=== PATIENT | male | born 2000 | race Caucasian/White ===

== ENCOUNTER 2023-07-23 15:13 | Inpatient (IN) | payer OTHER ==
[~2023-07-23] VITALS: Ht 167.6 cm; Wt 72.7 kg
[~2023-07-23 15:13] MED LIST: FLUO20CA22 PO; NYST10OI TOP
[2023-07-23 16:37] LABS: HEMATOCRIT 45.7 % (42.0-52.0); HEMOGLOBIN 16.1 g/dl (13.5-17.5); MEAN CORPUSCULAR HEMOGLOBIN 30.3 pg (27.0-33.0); MEAN CORPUSCULAR HGB CONC 35.2 g/dl (32.0-36.5); MEAN CORPUSCULAR VOLUME 85.9 fl (80.0-96.0); PLATELET COUNT, AUTOMATED 308 10^3/uL (150-450); RED BLOOD COUNT 5.32 10^6/uL (4.30-6.10); WHITE BLOOD COUNT 8.8 10^3/uL (4.0-10.0)
[2023-07-23 16:54] LABS: ETHYL ALCOHOL (ETHANOL) 0.011 % (0.000-0.010)
[2023-07-23 16:56] LABS: ALBUMIN 4.2 G/DL (3.2-5.2); ALKALINE PHOSPHATASE 106 U/L (46-116); ALT/SGPT 32 U/L (7.0-40); AST/SGOT 29 U/L (<34); BILIRUBIN,DIRECT 0.2 MG/DL (<0.4); BILIRUBIN,TOTAL 0.8 MG/DL (0.3-1.2); BLOOD UREA NITROGEN 14 MG/DL (9-23); CALCIUM LEVEL 9.6 MG/DL (8.5-10.1); CARBON DIOXIDE LEVEL 26 MMOL/L (20-31); CHLORIDE LEVEL 104 MMOL/L (98-107); CREATININE FOR GFR 0.84 MG/DL (0.70-1.30); GLOMERULAR FILTRATION RATE > 60.0 (>60); GLUCOSE, FASTING 88 MG/DL (60-100); POTASSIUM SERUM 4.2 MMOL/L (3.5-5.1); SALICYLATE LEVEL < 3.0 MG/DL (<30); SODIUM LEVEL 141 MMOL/L (136-145)
[2023-07-23 17:01] LABS: AMPHETAMINES LEVEL URINE NEGATIVE (NEGATIVE); BARBITURATES URINE NEGATIVE (NEGATIVE); CANNABINOIDS URINE NEGATIVE (NEGATIVE); COCAINE METABOLITE URINE NEGATIVE (NEGATIVE); PHENCYCLIDINE URINE NEGATIVE (NEGATIVE)
[2023-07-23 17:02] LABS: BENZODIAZEPINES URINE NEGATIVE (NEGATIVE); METHADONE URINE NEGATIVE (NEGATIVE); OPIATES URINE NEGATIVE (NEGATIVE)
[2023-07-23] MEDS ORDERED: MED REC IN PROGRESS XX SCH (17:35)
[2023-07-23] MEDS ORDERED: FLUO20CA22 PO (17:44)
[2023-07-23] MEDS ORDERED: NYST100085 TOP (17:45)
[2023-07-23] MEDS ORDERED: HOME MED LIST COMPLETE! XX SCH (17:50)
[2023-07-23] MEDS ORDERED: IBUPROFEN 400MG TAB PO PRN (18:25)
[2023-07-23] MEDS ORDERED: MAALOX 30 ML SUSP *UDC PO PRN (18:25)
[2023-07-23] MEDS ORDERED: ACETAMINOPHEN TAB 650MG DOSE (2X325MG) PO PRN (18:25)
[2023-07-23] MEDS ORDERED: diphenhydrAMINE 25MG CAP PO PRN (18:25)
[2023-07-23] MEDS ORDERED: MOM 30ML SUSPENSION UDC PO PRN (18:25)
[2023-07-23] MEDS ORDERED: LORazepam 2 MG TAB PO PRN (21:05)
[2023-07-23] MEDS: THIAMINE 100 MG TAB PO SCH (21:25)
[2023-07-23] MEDS: FLUoxetine 20MG CAP PO SCH (21:25)
[2023-07-23 21:32] VITALS: BP 135/88; TEMP 97.9; O2SAT 99
[2023-07-23 21:43] VITALS: BP 135/88
[2023-07-24 06:24] VITALS: BP 144/75; TEMP 97.6; O2SAT 100
[2023-07-24] MEDS: THIAMINE 100 MG TAB PO SCH ×2 (09:53→21:04)
[2023-07-24] MEDS: MULTIVITAMINS/MINERALS THERAP 1 TAB PO SCH (09:53)
[2023-07-24] MEDS: FOLIC ACID 1MG TAB PO SCH (09:53)
[2023-07-24 10:11] VITALS: BP 144/75; TEMP 97.6; O2SAT 100
[2023-07-24 12:41] VITALS: BP 142/87; TEMP 98.7; O2SAT 99
[2023-07-24 12:46] VITALS: BP 142/87
[2023-07-24 17:13] VITALS: BP 129/58; TEMP 97.6; O2SAT 97
[2023-07-24] MEDS: FLUoxetine 20MG CAP PO SCH (21:04)
[2023-07-24 21:30] VITALS: BP 129/58
[2023-07-25 06:01] VITALS: BP 139/81; TEMP 97.1; O2SAT 98
[2023-07-25 06:22] VITALS: BP 139/81
[2023-07-25] MEDS: FOLIC ACID 1MG TAB PO SCH (09:14)
[2023-07-25] MEDS: THIAMINE 100 MG TAB PO SCH ×2 (09:14→21:02)
[2023-07-25] MEDS: MULTIVITAMINS/MINERALS THERAP 1 TAB PO SCH (09:14)
[2023-07-25 14:03] VITALS: BP 143/83
[2023-07-25 18:22] VITALS: BP 121/77; TEMP 97.4; O2SAT 99
[2023-07-25] MEDS: FLUoxetine 20MG CAP PO SCH (21:02)
[2023-07-25 23:00] VITALS: BP 121/77
[2023-07-26 05:51] VITALS: BP 137/70; TEMP 97.5; O2SAT 97
[2023-07-26 07:00] VITALS: BP 134/97
[2023-07-26] MEDS: THIAMINE 100 MG TAB PO SCH (09:21)
[2023-07-26] MEDS: MULTIVITAMINS/MINERALS THERAP 1 TAB PO SCH (09:21)
[2023-07-26] MEDS: FOLIC ACID 1MG TAB PO SCH (09:21)
[2023-07-26 16:00] VITALS: BP 140/69
[2023-07-26 17:30] VITALS: BP 141/64; TEMP 97.9; O2SAT 96
[2023-07-26] MEDS: FLUoxetine 20MG CAP PO SCH (20:42)
[2023-07-27] MEDS: traZODone 50 MG TAB PO PRN ×2 (00:21→21:41)
[2023-07-27 06:41] VITALS: BP 108/59; TEMP 97.1; O2SAT 98
[2023-07-27 09:42] VITALS: BP 108/59; TEMP 97.1; O2SAT 98
[2023-07-27] MEDS: MULTIVITAMINS/MINERALS THERAP 1 TAB PO SCH (10:34)
[2023-07-27] MEDS: FOLIC ACID 1MG TAB PO SCH (10:34)
[2023-07-27 18:00] VITALS: BP 123/60; TEMP 97.6; O2SAT 97
[2023-07-27] MEDS: FLUoxetine 20MG CAP PO SCH (20:08)
[2023-07-28 06:39] VITALS: BP 131/65; TEMP 97.7; O2SAT 98
[2023-07-28 06:40] VITALS: BP 131/65
[2023-07-28] MEDS: MULTIVITAMINS/MINERALS THERAP 1 TAB PO SCH (10:02)
[2023-07-28] MEDS: FOLIC ACID 1MG TAB PO SCH (10:02)
[2023-07-28 11:11] VITALS: BP 131/65; TEMP 97.7; O2SAT 98
[2023-07-28 18:00] VITALS: BP 142/86; TEMP 98.2; O2SAT 97
[2023-07-28 19:09] VITALS: BP 145/80
[2023-07-28] MEDS: traZODone 50 MG TAB PO PRN (21:43)
[2023-07-28] MEDS: FLUoxetine 20MG CAP PO SCH (21:43)
[2023-07-29 06:25] VITALS: BP 119/58; TEMP 97.1; O2SAT 98
[2023-07-29] MEDS ORDERED: VITMTA PO (08:38)
[2023-07-29] MEDS ORDERED: FOLI1TAB11 PO (08:38)
[2023-07-29] MEDS ORDERED: TRAZ-252 PO (08:38)
[2023-07-29] MEDS ORDERED: FLUO20CA22 PO (08:38)
[2023-07-29] MEDS: MULTIVITAMINS/MINERALS THERAP 1 TAB PO SCH (09:09)
[2023-07-29] MEDS: FOLIC ACID 1MG TAB PO SCH (09:09)
== END 2023-07-29 10:17 | disposition home or self-care (01) | DRG 881 ==
LOC: M ED 15:13 → M ED INP 18:25 → M PSY 20:43
PROVIDERS: ADMIT Student in an Organized Health Care Education/Training Program; ATTEND Student in an Organized Health Care Education/Training Program
DX: F32.A Depression, unspecified (principal); F10.10 Alcohol abuse, uncomplicated; F12.10 Cannabis abuse, uncomplicated; F43.21 Adjustment disorder with depressed mood; Z91.51 Personal history of suicidal behavior; Z62.811 Personal history of psychological abuse in childhood; Z79.899 Other long term (current) drug therapy

== ENCOUNTER 2023-08-08 01:44 | Inpatient (IN) | payer OTHER ==
[~2023-08-08] VITALS: Ht 167.6 cm; Wt 72.7 kg
[~2023-08-08 01:44] MED LIST changes: +FOLI1TAB11 PO; +NYST100085 TOP; +TRAZ-252 PO; +VITMTA PO
[2023-08-08 02:16] LABS: BASO % 0.4 % (0.0-1.0); EOS # 0.1 10^3/uL (0.0-0.5); EOS % 1.9 % (0.0-3.0); HEMOGLOBIN 15.7 g/dl (13.5-17.5); LYMPH # 2.6 10^3/uL (1.5-5.0); LYMPH % 38.4 % (24.0-44.0); MEAN CORPUSCULAR HEMOGLOBIN 30.4 pg (27.0-33.0); MEAN CORPUSCULAR HGB CONC 34.9 g/dl (32.0-36.5); MEAN CORPUSCULAR VOLUME 87.2 fl (80.0-96.0); MONO # 0.5 10^3/uL (0.0-0.8); MONO % 7.1 % (2.0-8.0); NEUTROPHILS # 3.5 10^3/uL (1.5-8.5); NEUTROPHILS % 51.6 % (36.0-66.0); PLATELET COUNT, AUTOMATED 333 10^3/uL (150-450); RED BLOOD COUNT 5.16 10^6/uL (4.30-6.10); WHITE BLOOD COUNT 6.8 10^3/uL (4.0-10.0)
[2023-08-08 02:39] LABS: AMPHETAMINES LEVEL URINE NEGATIVE (NEGATIVE); BARBITURATES URINE NEGATIVE (NEGATIVE); BENZODIAZEPINES URINE NEGATIVE (NEGATIVE); CANNABINOIDS URINE NEGATIVE (NEGATIVE); COCAINE METABOLITE URINE NEGATIVE (NEGATIVE); METHADONE URINE NEGATIVE (NEGATIVE); OPIATES URINE NEGATIVE (NEGATIVE); PHENCYCLIDINE URINE NEGATIVE (NEGATIVE)
[2023-08-08 02:41] LABS: ETHYL ALCOHOL (ETHANOL) 0.243 % (0.000-0.010)
[2023-08-08 02:42] LABS: SALICYLATE LEVEL < 3.0 MG/DL (<30)
[2023-08-08 02:43] LABS: ALBUMIN 4.1 G/DL (3.2-5.2); ALKALINE PHOSPHATASE 102 U/L (46-116); ALT/SGPT 33 U/L (7.0-40); AST/SGOT 27 U/L (<34); BILIRUBIN,DIRECT < 0.1 MG/DL (<0.4); BILIRUBIN,TOTAL 0.3 MG/DL (0.3-1.2); BLOOD UREA NITROGEN 10 MG/DL (9-23); CALCIUM LEVEL 9.2 MG/DL (8.5-10.1); CARBON DIOXIDE LEVEL 26 MMOL/L (20-31); CHLORIDE LEVEL 106 MMOL/L (98-107); CREATININE FOR GFR 0.87 MG/DL (0.70-1.30); GLOMERULAR FILTRATION RATE > 60.0 (>60); GLUCOSE, FASTING 108 MG/DL (60-100); SODIUM LEVEL 145 MMOL/L (136-145); TOTAL PROTEIN 7.6 G/DL (5.7-8.2)
[2023-08-08 02:45] LABS: THYROID STIMULATING HORMONE 0.935 uIU/ML (0.55-4.78)
[2023-08-08] MEDS ORDERED: LORazepam 2 MG TAB PO PRN (09:30)
[2023-08-08] MEDS ORDERED: LORazepam 1 MG TAB PO PRN ×2 (09:33→12:25)
[2023-08-08] MEDS ORDERED: MED REC IN PROGRESS XX SCH (09:55)
[2023-08-08] MEDS ORDERED: HOME MED LIST COMPLETE! XX SCH (11:30)
[2023-08-08] MEDS ORDERED: MAALOX 30 ML SUSP *UDC PO PRN (12:25)
[2023-08-08] MEDS ORDERED: MOM 30ML SUSPENSION UDC PO PRN (12:25)
[2023-08-08] MEDS ORDERED: ACETAMINOPHEN TAB 650MG DOSE (2X325MG) PO PRN (12:25)
[2023-08-08] MEDS ORDERED: IBUPROFEN 400MG TAB PO PRN (12:25)
[2023-08-08 13:06] VITALS: BP 148/88; TEMP 98.2; O2SAT 98
[2023-08-08 18:00] VITALS: BP 178/90; TEMP 98.5; O2SAT 98
[2023-08-08] MEDS ORDERED: THIAMINE 100 MG TAB PO SCH (21:00)
[2023-08-08] MEDS: traZODone 50 MG TAB PO PRN (21:03)
[2023-08-08] MEDS: THIAMINE 100 MG TAB PO SCH (21:03)
[2023-08-08] MEDS: FLUoxetine 20MG CAP PO SCH (21:03)
[2023-08-08 22:01] VITALS: BP 143/81
[2023-08-09 06:00] VITALS: BP 111/64
[2023-08-09 06:20] VITALS: BP 111/64; TEMP 98.3; O2SAT 96
[2023-08-09] MEDS: THIAMINE 100 MG TAB PO SCH ×2 (08:57→21:08)
[2023-08-09] MEDS: NALTREXONE 50 MG TAB PO SCH (08:57)
[2023-08-09] MEDS ORDERED: FOLIC ACID 1MG TAB PO SCH ×2 (09:00)
[2023-08-09] MEDS ORDERED: MULTIVITAMINS/MINERALS THERAP 1 TAB PO SCH ×2 (09:00)
[2023-08-09 14:40] VITALS: BP 151/93; TEMP 98.2; O2SAT 98
[2023-08-09] MEDS: diphenhydrAMINE 25MG CAP PO PRN (14:54)
[2023-08-09 16:48] VITALS: BP 124/87; TEMP 98.1
[2023-08-09] MEDS: FLUoxetine 20MG CAP PO SCH (21:08)
[2023-08-10 06:42] VITALS: BP 114/66; TEMP 98.4; O2SAT 100
[2023-08-10] MEDS: NALTREXONE 50 MG TAB PO SCH (08:51)
[2023-08-10 16:00] VITALS: BP 135/76; TEMP 98.3; O2SAT 97
[2023-08-10] MEDS: diphenhydrAMINE 25MG CAP PO PRN (18:43)
[2023-08-10] MEDS: FLUoxetine 20MG CAP PO SCH (20:18)
[2023-08-10] MEDS: traZODone 50 MG TAB PO PRN (20:18)
[2023-08-11 06:29] VITALS: BP 111/57; TEMP 97.1; O2SAT 96
[2023-08-11] MEDS: NALTREXONE 50 MG TAB PO SCH (09:11)
[2023-08-11] MEDS: diphenhydrAMINE 25MG CAP PO PRN ×2 (15:10→21:32)
[2023-08-11 16:16] VITALS: BP 138/73; TEMP 98.7; O2SAT 97
[2023-08-11] MEDS: busPIRone 10 MG TAB PO SCH (18:23)
[2023-08-11] MEDS: FLUoxetine 20MG CAP PO SCH (21:32)
[2023-08-11] MEDS: traZODone 50 MG TAB PO PRN (21:32)
[2023-08-12 05:31] VITALS: BP 104/60; TEMP 97.1; O2SAT 97
[2023-08-12] MEDS: NALTREXONE 50 MG TAB PO SCH (09:32)
[2023-08-12] MEDS: busPIRone 10 MG TAB PO SCH ×2 (09:32→21:01)
[2023-08-12 15:35] VITALS: BP 130/71; TEMP 98.8; O2SAT 98
[2023-08-12] MEDS: diphenhydrAMINE 25MG CAP PO PRN ×2 (15:42→21:55)
[2023-08-12] MEDS: traZODone 50 MG TAB PO PRN (21:01)
[2023-08-12] MEDS: FLUoxetine 20MG CAP PO SCH (21:01)
[2023-08-13 06:33] VITALS: BP 100/59; TEMP 97.5; O2SAT 100
[2023-08-13] MEDS ORDERED: hydrOXYzine 50 MG TAB PO PRN (09:15)
[2023-08-13] MEDS: busPIRone 10 MG TAB PO SCH (09:20)
[2023-08-13] MEDS: NALTREXONE 50 MG TAB PO SCH (09:20)
[2023-08-13] MEDS ORDERED: BUSP10TA PO (14:27)
[2023-08-13] MEDS ORDERED: TRAZ-252 PO (14:27)
[2023-08-13] MEDS ORDERED: HYDR50TA70 PO (14:27)
[2023-08-13] MEDS ORDERED: NALT50TA4 PO (14:27)
[2023-08-13] MEDS ORDERED: FLUO20CA22 PO (14:27)
== END 2023-08-13 14:35 | DRG 881 ==
LOC: M ED 01:44 → M ED INP 12:24 → M PSY 13:22
PROVIDERS: ADMIT Student in an Organized Health Care Education/Training Program; ATTEND Student in an Organized Health Care Education/Training Program
DX: F32.A Depression, unspecified (principal); R45.851 Suicidal ideations; F10.20 Alcohol dependence, uncomplicated; Z62.811 Personal history of psychological abuse in childhood; Z91.51 Personal history of suicidal behavior; Z91.52 Personal history of nonsuicidal self-harm; Z79.899 Other long term (current) drug therapy

== ENCOUNTER 2023-10-07 19:01 | Inpatient (IN) | payer OTHER ==
[~2023-10-07] VITALS: Ht 170.2 cm; Wt 78.9 kg
[~2023-10-07 19:01] MED LIST changes: +BUSP10TA PO; +HYDR50TA70 PO; +NALT50TA4 PO
[2023-10-07 21:00] LABS: HEMATOCRIT 39.4 % (42.0-52.0); HEMOGLOBIN 13.9 g/dl (13.5-17.5); MEAN CORPUSCULAR HEMOGLOBIN 30.7 pg (27.0-33.0); MEAN CORPUSCULAR HGB CONC 35.3 g/dl (32.0-36.5); PLATELET COUNT, AUTOMATED 265 10^3/uL (150-450); RED BLOOD COUNT 4.53 10^6/uL (4.30-6.10); WHITE BLOOD COUNT 10.5 10^3/uL (4.0-10.0)
[2023-10-07 21:07] LABS: AMPHETAMINES LEVEL URINE NEGATIVE (NEGATIVE); BARBITURATES URINE NEGATIVE (NEGATIVE); BENZODIAZEPINES URINE NEGATIVE (NEGATIVE); CANNABINOIDS URINE NEGATIVE (NEGATIVE); COCAINE METABOLITE URINE NEGATIVE (NEGATIVE); METHADONE URINE NEGATIVE (NEGATIVE); OPIATES URINE NEGATIVE (NEGATIVE); PHENCYCLIDINE URINE NEGATIVE (NEGATIVE)
[2023-10-07 21:10] LABS: ETHYL ALCOHOL (ETHANOL) 0.004 % (0.000-0.010)
[2023-10-07 21:11] LABS: ALBUMIN 4.1 G/DL (3.2-5.2); ALKALINE PHOSPHATASE 97 U/L (46-116); ALT/SGPT 25 U/L (7.0-40); AST/SGOT 18 U/L (<34); BILIRUBIN,DIRECT < 0.1 MG/DL (<0.4); BILIRUBIN,TOTAL 0.3 MG/DL (0.3-1.2); BLOOD UREA NITROGEN 11 MG/DL (9-23); CALCIUM LEVEL 10.2 MG/DL (8.5-10.1); CARBON DIOXIDE LEVEL 30 MMOL/L (20-31); CHLORIDE LEVEL 107 MMOL/L (98-107); CREATININE FOR GFR 0.85 MG/DL (0.70-1.30); GLOMERULAR FILTRATION RATE > 60.0 (>60); GLUCOSE, FASTING 94 MG/DL (60-100); POTASSIUM SERUM 3.6 MMOL/L (3.5-5.1); SALICYLATE LEVEL < 3.0 MG/DL (<30); SODIUM LEVEL 142 MMOL/L (136-145); TOTAL PROTEIN 7.2 G/DL (5.7-8.2)
[2023-10-07 21:14] LABS: THYROID STIMULATING HORMONE 1.331 uIU/ML (0.55-4.78)
[2023-10-07] MEDS ORDERED: PRAZ2CAP PO (22:46)
[2023-10-07] MEDS ORDERED: OLAN1TAB16 PO (22:46)
[2023-10-08] MEDS ORDERED: OLAN7.5T8 PO (00:49)
[2023-10-08] MEDS ORDERED: OLAN1TAB16 PO (00:49)
[2023-10-08] MEDS ORDERED: FLUO20CA22 PO (00:49)
[2023-10-08] MEDS ORDERED: PRAZ2CAP PO (00:49)
[2023-10-08] MEDS ORDERED: ERGO500029 PO (00:49)
[2023-10-08] MEDS ORDERED: BUSP10TA PO (00:49)
[2023-10-08] MEDS ORDERED: NALT50TA4 PO (00:49)
[2023-10-08] MEDS ORDERED: HOME MED LIST COMPLETE! XX SCH (00:50)
[2023-10-08] MEDS ORDERED: OLANZapine ORAL DISINTEGRATING TAB 5MG PO PRN (10:30)
[2023-10-08] MEDS ORDERED: IBUPROFEN 400MG TAB PO PRN (10:30)
[2023-10-08] MEDS ORDERED: MOM 30ML SUSPENSION UDC PO PRN (10:30)
[2023-10-08] MEDS ORDERED: diphenhydrAMINE 25MG CAP PO PRN (10:30)
[2023-10-08] MEDS ORDERED: MAALOX 30 ML SUSP *UDC PO PRN (10:30)
[2023-10-08] MEDS ORDERED: ACETAMINOPHEN TAB 650MG DOSE (2X325MG) PO PRN (10:30)
[2023-10-08 12:35] VITALS: BP 123/79; TEMP 97.6; O2SAT 97
[2023-10-08] MEDS ORDERED: FLUoxetine 20MG CAP PO SCH (14:00)
[2023-10-08] MEDS: FLUoxetine 20MG CAP PO SCH (14:18)
[2023-10-08 19:06] VITALS: BP 146/61; TEMP 97.9; O2SAT 100
[2023-10-08] MEDS: busPIRone 10 MG TAB PO SCH (20:52)
[2023-10-08] MEDS: traZODone 50 MG TAB PO PRN (20:52)
[2023-10-08] MEDS: PRAZOSIN 1 MG CAP PO SCH (20:53)
[2023-10-08] MEDS ORDERED: OLANZapine 2.5MG TABLET PO SCH (21:00)
[2023-10-09 06:05] VITALS: BP 109/58; TEMP 98; O2SAT 99
[2023-10-09] MEDS ORDERED: VITAMIN D 50,000 UNITS CAPSULE (ERGOCALCIFEROL 1.25MG) PO SCH (09:00)
[2023-10-09] MEDS: NALTREXONE 50 MG TAB PO SCH (09:32)
[2023-10-09] MEDS: busPIRone 10 MG TAB PO SCH ×2 (09:32→20:34)
[2023-10-09] MEDS: FLUoxetine 20MG CAP PO SCH (13:33)
[2023-10-09] MEDS: NICOTINE 21MG/24HR 1 EA TRANSDERMAL TD SCH (15:26)
[2023-10-09 16:51] VITALS: BP_SYST 135; TEMP 98; O2SAT 78
[2023-10-09 20:33] VITALS: BP 137/77
[2023-10-09] MEDS: traZODone 50 MG TAB PO PRN (20:33)
[2023-10-09] MEDS: PRAZOSIN 1 MG CAP PO SCH (20:34)
[2023-10-09] MEDS ORDERED: OLANZapine 10 MG TAB PO SCH (21:00)
[2023-10-10 06:02] VITALS: BP 119/58; TEMP 97.5; O2SAT 96
[2023-10-10] MEDS: NALTREXONE 50 MG TAB PO SCH (09:38)
[2023-10-10] MEDS: busPIRone 10 MG TAB PO SCH ×2 (09:38→20:03)
[2023-10-10] MEDS: NICOTINE 21MG/24HR 1 EA TRANSDERMAL TD SCH (09:38)
[2023-10-10] MEDS: FLUoxetine 20MG CAP PO SCH (13:28)
[2023-10-10] MEDS: OLANZapine 5 MG TAB PO PRN (15:19)
[2023-10-10 16:06] VITALS: BP 135/79; TEMP 98.3; O2SAT 100
[2023-10-10] MEDS: traZODone 50 MG TAB PO PRN (20:03)
[2023-10-10] MEDS: PRAZOSIN 1 MG CAP PO SCH (20:05)
[2023-10-10] MEDS ORDERED: OLANZapine 2.5MG TABLET PO SCH (21:00)
[2023-10-11 06:16] VITALS: BP 113/62; TEMP 97.1; O2SAT 100
[2023-10-11] MEDS: NALTREXONE 50 MG TAB PO SCH (09:30)
[2023-10-11] MEDS: busPIRone 10 MG TAB PO SCH ×2 (09:30→21:33)
[2023-10-11] MEDS: NICOTINE 21MG/24HR 1 EA TRANSDERMAL TD SCH (09:31)
[2023-10-11] MEDS: FLUoxetine 20MG CAP PO SCH (13:34)
[2023-10-11] MEDS: OLANZapine 5 MG TAB PO PRN (13:34)
[2023-10-11 16:48] VITALS: BP 140/70; TEMP 97.6; O2SAT 97
[2023-10-11] MEDS: OLANZapine 10 MG TAB PO SCH (21:33)
[2023-10-11] MEDS: traZODone 50 MG TAB PO PRN (21:33)
[2023-10-11] MEDS: PRAZOSIN 1 MG CAP PO SCH (21:33)
[2023-10-12 06:28] VITALS: BP 113/57; TEMP 97.9
[2023-10-12] MEDS: NALTREXONE 50 MG TAB PO SCH (09:45)
[2023-10-12] MEDS: busPIRone 10 MG TAB PO SCH ×2 (09:45→20:26)
[2023-10-12] MEDS: NICOTINE 21MG/24HR 1 EA TRANSDERMAL TD SCH (09:45)
[2023-10-12] MEDS: FLUoxetine 20MG CAP PO SCH (13:24)
[2023-10-12 16:26] VITALS: BP 112/64; TEMP 98; O2SAT 97
[2023-10-12] MEDS: OLANZapine 10 MG TAB PO SCH (20:26)
[2023-10-12] MEDS: PRAZOSIN 1 MG CAP PO SCH (20:26)
[2023-10-12] MEDS: traZODone 50 MG TAB PO PRN (21:41)
[2023-10-13 06:20] VITALS: BP 126/60; TEMP 97.5; O2SAT 98
[2023-10-13] MEDS: NICOTINE 21MG/24HR 1 EA TRANSDERMAL TD SCH (09:00)
[2023-10-13] MEDS: NALTREXONE 50 MG TAB PO SCH (09:18)
[2023-10-13] MEDS: busPIRone 10 MG TAB PO SCH ×2 (09:18→20:03)
[2023-10-13] MEDS: FLUoxetine 20MG CAP PO SCH (14:12)
[2023-10-13 16:04] VITALS: BP 136/77; TEMP 98.2; O2SAT 96
[2023-10-13] MEDS: OLANZapine 5 MG TAB PO PRN (16:24)
[2023-10-13 20:03] VITALS: BP 145/99
[2023-10-13] MEDS: OLANZapine 10 MG TAB PO SCH (20:03)
[2023-10-13] MEDS: PRAZOSIN 1 MG CAP PO SCH (20:03)
[2023-10-13] MEDS: traZODone 50 MG TAB PO PRN (20:57)
[2023-10-14 06:14] VITALS: BP 111/58; TEMP 97.7; O2SAT 99
[2023-10-14] MEDS: NICOTINE 21MG/24HR 1 EA TRANSDERMAL TD SCH (09:00)
[2023-10-14] MEDS: NALTREXONE 50 MG TAB PO SCH (09:28)
[2023-10-14] MEDS: busPIRone 10 MG TAB PO SCH (09:28)
[2023-10-14] MEDS ORDERED: OLAN1TAB16 PO (10:48)
[2023-10-14] MEDS ORDERED: FLUO20CA22 PO (10:48)
[2023-10-14] MEDS ORDERED: BUSP10TA PO (10:48)
[2023-10-14] MEDS ORDERED: TRAZ-252 PO (10:48)
[2023-10-14] MEDS ORDERED: PRAZ2CAP PO (10:48)
[2023-10-14] MEDS ORDERED: OLAN20TA14 PO (10:48)
== END 2023-10-14 10:57 | disposition home or self-care (01) | DRG 885 ==
LOC: M ED 19:01 → M ED INP 10-08 10:26 → M PSY 10-08 11:59
PROVIDERS: ADMIT Student in an Organized Health Care Education/Training Program; ATTEND Student in an Organized Health Care Education/Training Program
DX: F29 Unspecified psychosis not due to a substance or known physiological condition (principal); R45.851 Suicidal ideations; F10.10 Alcohol abuse, uncomplicated; F43.25 Adjustment disorder with mixed disturbance of emotions and conduct; F20.9 Schizophrenia, unspecified; E55.9 Vitamin D deficiency, unspecified; Z76.5 Malingerer [conscious simulation]; Z62.811 Personal history of psychological abuse in childhood; Z91.51 Personal history of suicidal behavior; Z91.52 Personal history of nonsuicidal self-harm; Z79.899 Other long term (current) drug therapy